=== PATIENT | male | born 1980 | race Hispanic/Latino ===

== ENCOUNTER 2018-07-13 16:58 | Emergency (ER) | payer OTHER ==
[2018-07-13 17:30] LABS: BASOPHILS % (AUTO) 0.6 % (0.0-5.0); EOSINOPHILS % (AUTO) 2.2 % (0.0-8.0); HEMATOCRIT 40.9 % (42-54); LYMPHOCYTES % (AUTO) 15.5 % (21.0-51.0); MEAN CORPUSCULAR HEMOGLOBIN 30.8 pg (27.0-33.0); MEAN CORPUSCULAR HGB CONC 33.6 g/dL (32.0-36.0); MEAN CORPUSCULAR VOLUME 91.8 fL (79-99); MONOCYTES % (AUTO) 9.3 % (3.0-13.0); NEUTROPHILS % (AUTO) 72.4 % (40.0-77.0); PLATELET COUNT (AUTO) 345 K/uL (130-400); RED BLOOD CELL COUNT(AUTO) 4.46 MIL/uL (4.50-6.20); WHITE BLOOD COUNT (AUTO) 9.1 K/uL (4.8-10.8)
[2018-07-13 17:38] LABS: APPEARANCE,URINE Clear (CLEAR); BILIRUBIN,URINE Negative (NEGATIVE); COLOR,URINE Yellow (YELLOW); GLUCOSE, URINE (UA) Negative (NEGATIVE); KETONES,URINE Negative (NEGATIVE); LEUKOCYTE ESTERASE ,URINE Negative (NEGATIVE); NITRATE,URINE Negative (NEGATIVE); OCCULT BLOOD,URINE Negative (NEGATIVE); PH,URINE 6.5 (5.0-8.0); PROTEIN,URINE Negative (NEGATIVE)
[2018-07-13 17:39] LABS: CREATININE 0.8 mg/dL (0.5-1.5); POTASSIUM 3.7 mmol/L (3.5-5.1)
[2018-07-13 17:43] LABS: ALBUMIN 3.5 g/dL (3.5-5.0); BILIRUBIN,TOTAL 0.3 mg/dL (0.2-1.0); TOTAL PROTEIN, SERUM 7.4 g/dL (6.0-8.3)
[2018-07-13 17:46] LABS: AMPHET/METH SCREEN,URINE NEGATIVE (NEGATIVE); BARBITURATE SCREEN, URINE NEGATIVE (NEGATIVE); BENZODIAZEPINES SCREEN,URINE NEGATIVE (NEGATIVE); CANNABINOID SCREEN,URINE NEGATIVE (NEGATIVE); COCAINE SCREEN,URINE POSITIVE (NEGATIVE); OPIATE SCREEN,URINE NEGATIVE (NEGATIVE); PHENCYCLIDINE SCREEN,URINE NEGATIVE (NEGATIVE)
[2018-07-13 17:48] LABS: CREATINE KINASE, TOTAL 325 U/L (21-232); MYOGLOBIN 45 ng/mL (10-92); TROPONIN I < 0.04 ng/mL (0.00-0.06)
== END 2018-07-13 18:16 | disposition home or self-care (01) ==
LOC: EDH 16:58
DX: R07.89 Other chest pain (principal); F14.10 Cocaine abuse, uncomplicated; R11.2 Nausea with vomiting, unspecified
CPT/HCPCS: 36415; 71045; 80053; 80305; 81003; 82550; 83690; 83874; 84484; 85025; 93005

== ENCOUNTER 2018-07-29 20:46 | Emergency (ER) | payer OTHER ==
[2018-07-29] MEDS ORDERED: IOHEXOL-350 75 ML VIAL IV ONE (21:53)
[2018-07-29 22:23] LABS: BASOPHILS % (AUTO) 1.4 % (0.0-5.0); EOSINOPHILS % (AUTO) 2.2 % (0.0-8.0); HEMATOCRIT 39.8 % (42-54); LYMPHOCYTES % (AUTO) 34.1 % (21.0-51.0); MEAN CORPUSCULAR HEMOGLOBIN 30.4 pg (27.0-33.0); MEAN CORPUSCULAR VOLUME 92.2 fL (79-99); MONOCYTES % (AUTO) 8.6 % (3.0-13.0); NEUTROPHILS % (AUTO) 53.7 % (40.0-77.0); NUCLEATED RED BLOOD CELLS 0.1 % (0.0-0.19); PLATELET COUNT (AUTO) 266 K/uL (130-400); RED BLOOD CELL COUNT(AUTO) 4.31 MIL/uL (4.50-6.20); RED CELL DISTRIBUTION WIDTH 14.7 % (11.0-15.5); WHITE BLOOD COUNT (AUTO) 9.1 K/uL (4.8-10.8)
[2018-07-29 22:29] LABS: POTASSIUM 3.8 mmol/L (3.5-5.1)
[2018-07-29 22:34] LABS: ALBUMIN 3.5 g/dL (3.5-5.0); BILIRUBIN,TOTAL 0.1 mg/dL (0.2-1.0); TOTAL PROTEIN, SERUM 6.7 g/dL (6.0-8.3)
[2018-07-29 22:38] LABS: PARTIAL THROMBOPLASTIN TIME 26.7 SEC (26.3-35.5); PROTHROMBIN TIME 10.5 SEC (9.6-11.6)
[2018-07-29 22:44] LABS: MYOGLOBIN 174 ng/mL (10-92); TROPONIN I < 0.04 ng/mL (0.00-0.06)
[2018-07-29 22:46] LABS: SALICYLATE < 2.8 mg/dL (2.8-20.0)
[2018-07-29 22:47] LABS: ACETAMINOPHEN < 1 mcg/mL (10-29)
[2018-07-29 22:48] LABS: ALCOHOL, BLOOD 200 mg/dL (0-10); CREATINE KINASE, TOTAL 614 U/L (21-232)
== END 2018-07-29 23:26 | disposition home or self-care (01) ==
LOC: EDH 20:46
DX: S30.1XXA Contusion of abdominal wall, initial encounter (principal); S09.8XXA Other specified injuries of head, initial encounter; F10.129 Alcohol abuse with intoxication, unspecified; R45.851 Suicidal ideations; V49.49XA Driver injured in collision with other motor vehicles in traffic accident, initial encounter; Y93.89 Activity, other specified; Y92.89 Other specified places as the place of occurrence of the external cause; Y99.8 Other external cause status
CPT/HCPCS: 36415; 70450; 71045; 71260; 72125; 74177; 80053; 82550; 83874; 84484; 85025; 85610; 85730; 93005; 94761; 99285; G0480 ×2; G0481; Q9967

== ENCOUNTER 2021-05-01 02:49 | Emergency (ER) | payer OTHER ==
[2021-05-01 02:51] VITALS: BP 163/99
[2021-05-01 03:09] VITALS: BP 177/116
[2021-05-01 04:58] VITALS: BP 156/93
[2021-05-01 05:15] VITALS: BP 136/82
[2021-05-01] MEDS ORDERED: KETOROLAC 30MG VIAL (30MG/ML) ONE (05:28)
[2021-05-01] MEDS ORDERED: KETOROLAC 30MG VIAL (30MG/ML) IV ONE (05:30)
[2021-05-01] MEDS: DIPH,PERTUSS(ACELL),TET VAC/PF 0.5 ML VIAL IM ONE ×2 (05:38→05:41)
[2021-05-01] MEDS: TETANUS/DIPHTHERIA TOXOID [ADULT] 0.5 ML VIAL IM ONE ×2 (05:39→05:41)
[2021-05-01 06:12] VITALS: BP 136/80
[2021-05-01 08:39] VITALS: BP 138/79
== END 2021-05-01 08:28 | disposition home or self-care (01) ==
LOC: EDH 03:32
DX: S00.81XA Abrasion of other part of head, initial encounter (principal); S00.511A Abrasion of lip, initial encounter; S80.01XA Contusion of right knee, initial encounter; Y04.8XXA Assault by other bodily force, initial encounter; Y93.89 Activity, other specified; Y92.89 Other specified places as the place of occurrence of the external cause; Y99.8 Other external cause status
CPT/HCPCS: 70450; 70486; 72125; 90471; 90714; 96374; 99285; J1885

== ENCOUNTER 2021-06-11 13:21 | Emergency (ER) | payer OTHER ==
[~2021-06-11] VITALS: Ht 157.5 cm; Wt 99.8 kg
[2021-06-11 13:27] VITALS: BP 126/73
[2021-06-11 14:19] LABS: BASOPHILS % (AUTO) 0.8 % (0.0-5.0); EOSINOPHILS % (AUTO) 0.6 % (0.0-8.0); HEMATOCRIT 41.4 % (42-54); LYMPHOCYTES % (AUTO) 14.7 % (21.0-51.0); MEAN CORPUSCULAR HEMOGLOBIN 31.4 pg (27.0-33.0); MEAN CORPUSCULAR HGB CONC 33.6 g/dL (32.0-36.0); MEAN CORPUSCULAR VOLUME 93.5 fL (79-99); MONOCYTES % (AUTO) 7.4 % (3.0-13.0); PLATELET COUNT (AUTO) 356 K/uL (130-400); RED BLOOD CELL COUNT(AUTO) 4.43 MIL/uL (4.50-6.20); RED CELL DISTRIBUTION WIDTH 13.4 % (11.0-15.5); WHITE BLOOD COUNT (AUTO) 12.8 K/uL (4.8-10.8)
[2021-06-11 14:31] LABS: CREATININE 1.4 mg/dL (0.5-1.5); POTASSIUM 3.5 mmol/L (3.5-5.1)
[2021-06-11 14:36] LABS: ALBUMIN 3.7 g/dL (3.5-5.0); BILIRUBIN,TOTAL 0.2 mg/dL (0.2-1.0); TOTAL PROTEIN, SERUM 7.3 g/dL (6.0-8.3)
[2021-06-11] MEDS: 0.9%NACL 1000ML 1,000 ML IV ONE (15:38)
[2021-06-11] MEDS: ACETAMINOPHEN 500 MG TABLET PO ONE (15:38)
[2021-06-11] MEDS ORDERED: ACET-2247 PO (15:56)
[2021-06-11 16:04] VITALS: BP 132/84
== END 2021-06-11 16:08 | disposition home or self-care (01) ==
LOC: EDH 13:21
DX: S02.2XXA Fracture of nasal bones, initial encounter for closed fracture (principal); S63.592A Other specified sprain of left wrist, initial encounter; S00.83XA Contusion of other part of head, initial encounter; S40.012A Contusion of left shoulder, initial encounter; S80.02XA Contusion of left knee, initial encounter; Y08.89XA Assault by other specified means, initial encounter; Y93.89 Activity, other specified; Y92.89 Other specified places as the place of occurrence of the external cause; Y99.8 Other external cause status
CPT/HCPCS: 36415; 70450; 70486; 72125; 73030; 73100; 73562; 80053; 85025; 96360; 99285; J7030

== ENCOUNTER 2022-11-21 19:05 | Inpatient (IN) | payer OTHER ==
[~2022-11-21] VITALS: Ht 170.2 cm; Wt 70.9 kg
[~2022-11-21 19:05] MED LIST: ACET-2247 PO
[2022-11-21] MEDS ORDERED: VANCOMYCIN 1G/250ML KIT 250 ML IV ONE (19:27)
[2022-11-21] MEDS ORDERED: VANCOMYCIN 1G VIAL IVPB ONE (19:30)
[2022-11-21] MEDS ORDERED: ZOSYN 3.375GM +NS 50ML IVPB ONE (19:30)
[2022-11-21 20:13] LABS: BASOPHILS % (AUTO) 0.8 % (0.0-5.0); EOSINOPHILS % (AUTO) 0.5 % (0.0-8.0); HEMATOCRIT 32.4 % (42-54); LYMPHOCYTES % (AUTO) 11.8 % (21.0-51.0); MEAN CORPUSCULAR HEMOGLOBIN 30.1 pg (27.0-33.0); MEAN CORPUSCULAR HGB CONC 34.9 g/dL (32.0-36.0); MEAN CORPUSCULAR VOLUME 86.4 fL (79-99); MONOCYTES % (AUTO) 16.9 % (3.0-13.0); NEUTROPHILS % (AUTO) 66.1 % (40.0-77.0); PLATELET COUNT (AUTO) 202 K/uL (130-400); RED BLOOD CELL COUNT(AUTO) 3.75 MIL/uL (4.50-6.20); RED CELL DISTRIBUTION WIDTH 15.9 % (11.0-15.5); WHITE BLOOD COUNT (AUTO) 13.1 K/uL (4.8-10.8)
[2022-11-21 20:23] LABS: INR 1.19 (0.85-1.15); PROTHROMBIN TIME 12.8 SEC (9.6-11.6)
[2022-11-21 20:25] LABS: POTASSIUM 3.3 mmol/L (3.5-5.1)
[2022-11-21 20:32] LABS: ALBUMIN 1.4 g/dL (3.5-5.0); TOTAL PROTEIN, SERUM 6.4 g/dL (6.0-8.3)
[2022-11-21 20:45] LABS: APPEARANCE,URINE CLEAR (CLEAR); BILIRUBIN,URINE NEGATIVE (NEGATIVE); COLOR,URINE YELLOW (YELLOW); GLUCOSE, URINE (UA) NEGATIVE (NEGATIVE); KETONES,URINE NEGATIVE (NEGATIVE); LEUKOCYTE ESTERASE ,URINE 75 Leu/uL (NEGATIVE); NITRATE,URINE NEGATIVE (NEGATIVE); OCCULT BLOOD,URINE LARGE (NEGATIVE); PH,URINE 5.5 (5.0-8.0); PROTEIN,URINE 50 mg/dL (NEGATIVE)
[2022-11-21 20:48] LABS: BACTERIA,URINE RARE /HPF (None Seen); MUCUS,URINE RARE LPF (None Seen); OTHER CASTS, URINE 3 /LPF (None Seen); YEAST,URINE BUDDING RARE /HPF (None Seen)
[2022-11-21] MEDS ORDERED: IOHEXOL-350 50ML VIAL IV ONE (21:14)
[2022-11-21] MEDS ORDERED: HEPARIN 25,000 UNITS/250ML D5W 250 ML IV STA (22:08)
[2022-11-21] MEDS ORDERED: DEXAMETHASONE SOD PHOSPHATE 4 MG/ML 1ML VIAL ONE (22:21)
[2022-11-21] MEDS ORDERED: KETOROLAC 30MG VIAL (30MG/ML) ONE (22:21)
[2022-11-21] MEDS ORDERED: ACETAMINOPHEN 650 MG/20.3 ML UDCUP PEG ONE (22:30)
[2022-11-21] MEDS ORDERED: DEXAMETHASONE 4 MG TAB PO SCH (22:30)
[2022-11-21] MEDS ORDERED: KETOROLAC 30MG VIAL (30MG/ML) IVP ONE (22:30)
[2022-11-21] MEDS ORDERED: HEPARIN 5,000 UNIT VIAL ONE (22:35)
[2022-11-21] MEDS: CLINDAMYCIN IVPB 900MG/50ML 50 ML IV SCH (22:47)
[2022-11-22] VITALS (26 sets, daily range): BP systolic 103–170; BP diastolic 67–109
[2022-11-22] MEDS ORDERED: KCL 20 MEQ ERTAB PO ONE (01:30)
[2022-11-22] MEDS: CLINDAMYCIN IVPB 900MG/50ML 50 ML IV SCH ×2 (01:35→13:43)
[2022-11-22] MEDS ORDERED: MORPHINE 2 MG SYG IV PRN (02:00)
[2022-11-22] MEDS ORDERED: KCL 20 MEQ ERTAB PO PRN (02:00)
[2022-11-22] MEDS ORDERED: MAG/ALUM/SIMETH 30 ML UDCUP PO PRN (02:00)
[2022-11-22] MEDS ORDERED: VANCOMYCIN 1G/250ML KIT 250 ML IV SCH (02:00)
[2022-11-22] MEDS ORDERED: LACTULOSE 20 GM/30 ML UDCUP PO PRN (02:00)
[2022-11-22] MEDS ORDERED: ONDANSETRON 4MG INJ IV PRN (02:00)
[2022-11-22] MEDS ORDERED: VANCOMYCIN PROTOCOL PER PHARMACY IV PRN ×2 (02:00)
[2022-11-22] MEDS ORDERED: DIPHENHYDRAMINE HCL 25 MG CAPSULE PO PRN (02:00)
[2022-11-22] MEDS ORDERED: LIDOCAINE HCL-MPF 1% 2ML VIAL IV PRN (02:00)
[2022-11-22] MEDS ORDERED: POTASSIUM CHLORIDE 20MEQ/100ML 100 ML IV PRN (02:00)
[2022-11-22] MEDS ORDERED: NITROGLYCERIN 0.4 MG SL TAB SL PRN (02:00)
[2022-11-22] MEDS ORDERED: POTASSIUM CHLORIDE 10% ELIXIR 20 MEQ/15 ML UDCUP PO PRN (02:00)
[2022-11-22] MEDS: 0.9%NACL 1000ML 1,000 ML IV SCH ×3 (02:09→22:00)
[2022-11-22] MEDS: ZOSYN 3.375GM+NS 50ML 50 ML IVPB SCH ×3 (04:39→20:10)
[2022-11-22] MEDS ORDERED: CHLORDIAZEPOXIDE HCL 25 MG CAP PO PRN (08:30)
[2022-11-22] MEDS ORDERED: PHARMACY COMMUNICATION MISC PRN (08:30)
[2022-11-22] MEDS ORDERED: LORAZEPAM 2 MG/ML 1 ML VIAL IVP PRN ×2 (08:30)
[2022-11-22] MEDS ORDERED: 0.9% NACL 250ML 250 ML ONE (08:50)
[2022-11-22] MEDS: CHLORDIAZEPOXIDE HCL 25 MG CAP PO PRN (09:28)
[2022-11-22] MEDS: VANCOMYCIN 1G/250ML KIT 250 ML IV SCH ×2 (09:28→20:10)
[2022-11-22] MEDS: FAMOTIDINE 20MG VIAL IV SCH ×2 (09:28→20:10)
[2022-11-22 10:43] LABS: BASOPHILS % (AUTO) 0.3 % (0.0-5.0); HEMATOCRIT 32.2 % (42-54); LYMPHOCYTES % (AUTO) 9.1 % (21.0-51.0); MEAN CORPUSCULAR HEMOGLOBIN 30.4 pg (27.0-33.0); MEAN CORPUSCULAR HGB CONC 34.5 g/dL (32.0-36.0); MEAN CORPUSCULAR VOLUME 88.2 fL (79-99); MONOCYTES % (AUTO) 7.8 % (3.0-13.0); NEUTROPHILS % (AUTO) 78.9 % (40.0-77.0); PLATELET COUNT (AUTO) 211 K/uL (130-400); RED BLOOD CELL COUNT(AUTO) 3.65 MIL/uL (4.50-6.20); RED CELL DISTRIBUTION WIDTH 15.7 % (11.0-15.5); WHITE BLOOD COUNT (AUTO) 12.3 K/uL (4.8-10.8)
[2022-11-22 10:51] LABS: CREATININE 0.9 mg/dL (0.5-1.5); POTASSIUM 3.8 mmol/L (3.5-5.1)
[2022-11-22 10:53] LABS: INR 1.18 (0.85-1.15); PROTHROMBIN TIME 12.7 SEC (9.6-11.6)
[2022-11-22 11:01] LABS: ALBUMIN 1.3 g/dL (3.5-5.0); CRP QUANTITATIVE 119.1 mg/L (0.00-9.0); TOTAL PROTEIN, SERUM 6.2 g/dL (6.0-8.3)
[2022-11-22 12:06] LABS: ERYTHROCYTE SEDIMENTATION RATE 105 MM/HR (0-15)
[2022-11-22] MEDS ORDERED: LIDOCAINE 2%-EPI 1:200,000 20 ML VIAL IJ ONE ×2 (13:29→15:53)
[2022-11-22] MEDS ORDERED: MIDAZOLAM HCL 1 MG/ML 2ML VIAL ONE (15:25)
[2022-11-22] MEDS ORDERED: SUCCINYLCHOLINE CHLORIDE 20 MG/ML 10 ML VIAL ONE (15:25)
[2022-11-22] MEDS ORDERED: FENTANYL CITRATE PF 50 MCG/1 ML 2ML VIAL ONE ×2 (15:25→16:18)
[2022-11-22] MEDS ORDERED: PROPOFOL 10 MG/ML 20ML VIAL IV ONE (15:26)
[2022-11-22] MEDS ORDERED: ROCURONIUM 10MG/1ML SYR 10 MG/ML ML ONE (15:41)
[2022-11-22] MEDS ORDERED: DEXAMETHASONE SOD PHOSPHATE 10MG/ML 1ML VIAL ONE (16:22)
[2022-11-22] MEDS ORDERED: ONDANSETRON 4MG INJ ONE (16:49)
[2022-11-22] MEDS ORDERED: LABETALOL 20MG SYG IV ONE (16:53)
[2022-11-22] MEDS ORDERED: HYDROMORPHONE 1 MG INJ ONE (16:54)
[2022-11-22] MEDS ORDERED: MEPERIDINE-PF 25 MG/ML SYG ONE (17:17)
[2022-11-22] MEDS: MORPHINE 4 MG SYG IV PRN (18:34)
[2022-11-22 18:55] LABS: BASOPHILS % (AUTO) 0.3 % (0.0-5.0); EOSINOPHILS % (AUTO) 0.1 % (0.0-8.0); HEMATOCRIT 26.9 % (42-54); LYMPHOCYTES % (AUTO) 5.8 % (21.0-51.0); MEAN CORPUSCULAR HGB CONC 34.2 g/dL (32.0-36.0); MEAN CORPUSCULAR VOLUME 90.6 fL (79-99); MONOCYTES % (AUTO) 5.7 % (3.0-13.0); NEUTROPHILS % (AUTO) 85.8 % (40.0-77.0); PLATELET COUNT (AUTO) 250 K/uL (130-400); RED BLOOD CELL COUNT(AUTO) 2.97 MIL/uL (4.50-6.20); RED CELL DISTRIBUTION WIDTH 16.2 % (11.0-15.5); WHITE BLOOD COUNT (AUTO) 24.1 K/uL (4.8-10.8)
[2022-11-23] VITALS: BP 116/71
[2022-11-23] MEDS: CLINDAMYCIN IVPB 900MG/50ML 50 ML IV SCH ×3 (00:46→13:50)
[2022-11-23] MEDS: MORPHINE 4 MG SYG IV PRN (00:50)
[2022-11-23 04:00] VITALS: BP 134/87
[2022-11-23 05:00] LABS: BASOPHILS % (AUTO) 0.2 % (0.0-5.0); HEMATOCRIT 22.6 % (42-54); LYMPHOCYTES % (AUTO) 7.1 % (21.0-51.0); MEAN CORPUSCULAR HEMOGLOBIN 30.2 pg (27.0-33.0); MEAN CORPUSCULAR HGB CONC 34.1 g/dL (32.0-36.0); MEAN CORPUSCULAR VOLUME 88.6 fL (79-99); MONOCYTES % (AUTO) 11.3 % (3.0-13.0); NEUTROPHILS % (AUTO) 79.4 % (40.0-77.0); PLATELET COUNT (AUTO) 211 K/uL (130-400); RED BLOOD CELL COUNT(AUTO) 2.55 MIL/uL (4.50-6.20); RED CELL DISTRIBUTION WIDTH 15.9 % (11.0-15.5); WHITE BLOOD COUNT (AUTO) 17.6 K/uL (4.8-10.8)
[2022-11-23 05:23] LABS: ALBUMIN 1.3 g/dL (3.5-5.0); POTASSIUM 4.1 mmol/L (3.5-5.1); TOTAL PROTEIN, SERUM 5.4 g/dL (6.0-8.3)
[2022-11-23] MEDS: ZOSYN 3.375GM+NS 50ML 50 ML IVPB SCH ×3 (06:10→20:44)
[2022-11-23 08:00] VITALS: BP_SYST 140; BP_SYST 152; BP_DIAS 109; BP_DIAS 90
[2022-11-23] MEDS: VANCOMYCIN 1G/250ML KIT 250 ML IV SCH ×2 (10:20→20:44)
[2022-11-23] MEDS: FAMOTIDINE 20MG VIAL IV SCH ×2 (10:21→20:44)
[2022-11-23] MEDS: 0.9%NACL 1000ML 1,000 ML IV SCH ×2 (10:22→18:06)
[2022-11-23] MEDS: ACETAMINOPHEN WITH CODEINE 1 TAB TAB PO PRN ×2 (10:31→20:56)
[2022-11-23 11:30] VITALS: BP 115/68
[2022-11-23 15:53] VITALS: BP 122/83
[2022-11-23 19:00] VITALS: BP 123/79
[2022-11-24] VITALS: BP 143/89
[2022-11-24] MEDS: CLINDAMYCIN IVPB 900MG/50ML 50 ML IV SCH ×2 (00:22→06:56)
[2022-11-24 04:00] VITALS: BP 140/89
[2022-11-24] MEDS: MORPHINE 4 MG SYG IV PRN ×4 (05:23→23:07)
[2022-11-24] MEDS: 0.9%NACL 1000ML 1,000 ML IV SCH ×2 (05:23→18:09)
[2022-11-24] MEDS: ZOSYN 3.375GM+NS 50ML 50 ML IVPB SCH (05:23)
[2022-11-24 05:43] LABS: HEMATOCRIT 21.5 % (42-54); MEAN CORPUSCULAR HEMOGLOBIN 30.8 pg (27.0-33.0); MEAN CORPUSCULAR HGB CONC 33.5 g/dL (32.0-36.0); MEAN CORPUSCULAR VOLUME 91.9 fL (79-99); RED BLOOD CELL COUNT(AUTO) 2.34 MIL/uL (4.50-6.20); RED CELL DISTRIBUTION WIDTH 16.3 % (11.0-15.5); WHITE BLOOD COUNT (AUTO) 7.1 K/uL (4.8-10.8)
[2022-11-24 06:14] LABS: ALBUMIN 1.3 g/dL (3.5-5.0); CREATININE 1.1 mg/dL (0.5-1.5); TOTAL PROTEIN, SERUM 5.3 g/dL (6.0-8.3)
[2022-11-24 08:00] VITALS: BP 167/101
[2022-11-24] MEDS ORDERED: 0.9% NACL 250ML 250 ML ONE (09:11)
[2022-11-24] MEDS: FAMOTIDINE 20MG VIAL IV SCH ×2 (09:22→19:53)
[2022-11-24] MEDS: VANCOMYCIN 1G/250ML KIT 250 ML IV SCH (09:22)
[2022-11-24 12:00] VITALS: BP 162/104
[2022-11-24] MEDS: CEFTRIAXONE 2GM VIAL IVPB SCH (14:10)
[2022-11-24] MEDS: METOPROLOL TARTRATE 1 MG/ML 5ML VIAL IV PRN (15:50)
[2022-11-24 16:00] VITALS: BP 158/104
[2022-11-24 19:00] VITALS: BP 141/95
[2022-11-25] VITALS: BP 176/102
[2022-11-25] MEDS: 0.9%NACL 1000ML 1,000 ML IV SCH
[2022-11-25 04:00] VITALS: BP 175/104
[2022-11-25] MEDS: METOPROLOL TARTRATE 1 MG/ML 5ML VIAL IV PRN ×3 (04:15→23:48)
[2022-11-25 04:39] LABS: BASOPHILS % (AUTO) 1.4 % (0.0-5.0); EOSINOPHILS % (AUTO) 2.1 % (0.0-8.0); LYMPHOCYTES % (AUTO) 24.6 % (21.0-51.0); MEAN CORPUSCULAR HEMOGLOBIN 31.2 pg (27.0-33.0); MEAN CORPUSCULAR HGB CONC 34.3 g/dL (32.0-36.0); MEAN CORPUSCULAR VOLUME 90.8 fL (79-99); MONOCYTES % (AUTO) 13.8 % (3.0-13.0); NEUTROPHILS % (AUTO) 53.8 % (40.0-77.0); PLATELET COUNT (AUTO) 295 K/uL (130-400); RED BLOOD CELL COUNT(AUTO) 2.18 MIL/uL (4.50-6.20); RED CELL DISTRIBUTION WIDTH 16.2 % (11.0-15.5); WHITE BLOOD COUNT (AUTO) 8.3 K/uL (4.8-10.8)
[2022-11-25 04:43] LABS: ALBUMIN 1.3 g/dL (3.5-5.0); CREATININE 0.9 mg/dL (0.5-1.5); POTASSIUM 3.9 mmol/L (3.5-5.1); TOTAL PROTEIN, SERUM 5.3 g/dL (6.0-8.3)
[2022-11-25 04:46] LABS: HEMATOCRIT 19.8 % (42-54)
[2022-11-25 07:30] VITALS: BP 188/105
[2022-11-25] MEDS: FAMOTIDINE 20MG VIAL IV SCH ×2 (09:00→21:23)
[2022-11-25 11:00] VITALS: BP 187/97
[2022-11-25] MEDS: MORPHINE 4 MG SYG IV PRN (11:09)
[2022-11-25 15:19] LABS: HEMATOCRIT 26.2 % (42-54)
[2022-11-25] MEDS: CEFTRIAXONE 2GM VIAL IVPB SCH (15:47)
[2022-11-25 16:00] VITALS: BP 206/107
[2022-11-25] MEDS: ACETAMINOPHEN WITH CODEINE 1 TAB TAB PO PRN ×2 (18:19→23:47)
[2022-11-25 19:00] VITALS: BP 127/88
[2022-11-26] VITALS (29 sets, daily range): BP systolic 127–196; BP diastolic 88–125
[2022-11-26 04:56] LABS: HEMATOCRIT 27.4 % (42-54); MEAN CORPUSCULAR HEMOGLOBIN 29.8 pg (27.0-33.0); MEAN CORPUSCULAR HGB CONC 33.6 g/dL (32.0-36.0); MEAN CORPUSCULAR VOLUME 88.7 fL (79-99); RED BLOOD CELL COUNT(AUTO) 3.09 MIL/uL (4.50-6.20); RED CELL DISTRIBUTION WIDTH 16.5 % (11.0-15.5); WHITE BLOOD COUNT (AUTO) 8.7 K/uL (4.8-10.8)
[2022-11-26 05:06] LABS: ALBUMIN 1.5 g/dL (3.5-5.0); CREATININE 0.9 mg/dL (0.5-1.5); POTASSIUM 4.3 mmol/L (3.5-5.1); TOTAL PROTEIN, SERUM 5.6 g/dL (6.0-8.3)
[2022-11-26] MEDS: METOPROLOL TARTRATE 1 MG/ML 5ML VIAL IV PRN (05:19)
[2022-11-26] MEDS ORDERED: MIDAZOLAM HCL 1 MG/ML 5ML VIAL ONE (06:26)
[2022-11-26] MEDS ORDERED: CEFAZOLIN SODIUM 1 GM VIAL ONE (06:45)
[2022-11-26] MEDS ORDERED: LIDOCAINE 1%-EPI 1:100,000 20 ML VIAL IJ SCH (07:30)
[2022-11-26] MEDS ORDERED: LIDOCAINE HCL-MPF 1% 5ML AMP IJ ONE (08:23)
[2022-11-26] MEDS ORDERED: FENTANYL CITRATE PF 50 MCG/1 ML 2ML VIAL ONE ×2 (08:23→08:57)
[2022-11-26] MEDS ORDERED: PROPOFOL 10 MG/ML 20ML VIAL IV ONE (08:23)
[2022-11-26] MEDS ORDERED: ROCURONIUM 10MG/1ML SYR 10 MG/ML ML ONE (08:23)
[2022-11-26] MEDS ORDERED: ONDANSETRON 4MG INJ ONE (08:42)
[2022-11-26] MEDS ORDERED: KETOROLAC 30MG VIAL (30MG/ML) ONE (08:58)
[2022-11-26] MEDS ORDERED: DEXAMETHASONE SOD PHOSPHATE 10MG/ML 1ML VIAL ONE (09:00)
[2022-11-26] MEDS ORDERED: GLYCOPYRROLATE 1 MG/5 ML SYRINGE ONE (09:12)
[2022-11-26] MEDS ORDERED: NEOSTIGMINE 5MG/5ML SYR IV ONE (09:12)
[2022-11-26] MEDS: ACETAMINOPHEN WITH CODEINE 1 TAB TAB PO PRN (10:58)
[2022-11-26] MEDS: LISINOPRIL 5 MG TABLET PO SCH (10:58)
[2022-11-26] MEDS: FAMOTIDINE 20MG VIAL IV SCH ×2 (10:59→20:19)
[2022-11-26] MEDS ORDERED: LISINOPRIL 5 MG TABLET PO SCH (11:00)
[2022-11-26] MEDS ORDERED: METOPROLOL TARTRATE 1 MG/ML 5ML VIAL IV PRN (11:00)
[2022-11-26] MEDS: THIAMINE HCL 100 MG, FOLIC ACID 1 MG in 0.9%NACL 1000ML 1,000 ML IV SCH ×2 (11:00→14:41)
[2022-11-26] MEDS: CEFTRIAXONE 2GM VIAL IVPB SCH (14:39)
[2022-11-26] MEDS: MORPHINE 4 MG SYG IV PRN (20:22)
[2022-11-27] VITALS (7 sets, daily range): BP systolic 149–195; BP diastolic 86–113
[2022-11-27] MEDS: CHLORDIAZEPOXIDE HCL 25 MG CAP PO PRN (00:25)
[2022-11-27 04:32] LABS: BASOPHILS % (AUTO) 0.4 % (0.0-5.0); EOSINOPHILS % (AUTO) 0.6 % (0.0-8.0); HEMATOCRIT 24.1 % (42-54); LYMPHOCYTES % (AUTO) 18.5 % (21.0-51.0); MEAN CORPUSCULAR HEMOGLOBIN 30.1 pg (27.0-33.0); MEAN CORPUSCULAR HGB CONC 33.2 g/dL (32.0-36.0); MEAN CORPUSCULAR VOLUME 90.6 fL (79-99); MONOCYTES % (AUTO) 10.7 % (3.0-13.0); NEUTROPHILS % (AUTO) 68.5 % (40.0-77.0); PLATELET COUNT (AUTO) 417 K/uL (130-400); RED BLOOD CELL COUNT(AUTO) 2.66 MIL/uL (4.50-6.20); RED CELL DISTRIBUTION WIDTH 16.2 % (11.0-15.5); WHITE BLOOD COUNT (AUTO) 11.4 K/uL (4.8-10.8)
[2022-11-27 04:52] LABS: ALBUMIN 1.7 g/dL (3.5-5.0); CREATININE 0.8 mg/dL (0.5-1.5); CRP QUANTITATIVE 9.7 mg/L (0.00-9.0); MAGNESIUM 1.3 mg/dL (1.80-2.40); POTASSIUM 3.9 mmol/L (3.5-5.1); TOTAL PROTEIN, SERUM 5.8 g/dL (6.0-8.3)
[2022-11-27] MEDS ORDERED: MAGNESIUM 2GM PREMIX 50ML 50 ML IV ONE (06:00)
[2022-11-27] MEDS: GUAIFENESIN-DM 200/20 MG 10 ML PO PRN ×2 (06:04→20:40)
[2022-11-27] MEDS: LISINOPRIL 5 MG TABLET PO SCH (08:50)
[2022-11-27] MEDS: ACETAMINOPHEN WITH CODEINE 1 TAB TAB PO PRN ×3 (08:50→20:41)
[2022-11-27] MEDS: FAMOTIDINE 20MG VIAL IV SCH ×2 (08:50→20:40)
[2022-11-27] MEDS ORDERED: MAGNESIUM 2GM PREMIX 50ML 50 ML IV SCH (09:30)
[2022-11-27] MEDS: CEFTRIAXONE 2GM VIAL IVPB SCH (14:15)
[2022-11-27] MEDS ORDERED: AMLODIPINE 5 MG TAB PO SCH (14:30)
[2022-11-27] MEDS: KETOROLAC 15MG/ML VIAL (15MG/ML) IV PRN (15:45)
[2022-11-27 18:10] LABS: HEPATITIS A IGM ANTIBODY Non-Reactive (Nonreactive); HEPATITIS B CORE IGM ANTIBODY Non-Reactive (Negative); HEPATITIS B SURFACE ANTIGEN Non-Reactive (Nonreactive); HEPATITIS C ANTIBODY Non-Reactive (Nonreactive)
[2022-11-27] MEDS: THIAMINE HCL 100 MG, FOLIC ACID 1 MG in 0.9%NACL 1000ML 1,000 ML IV SCH (22:31)
[2022-11-28] VITALS (7 sets, daily range): BP systolic 144–176; BP diastolic 87–113
[2022-11-28 05:00] LABS: BASOPHILS % (AUTO) 2.5 % (0.0-5.0); EOSINOPHILS % (AUTO) 2.9 % (0.0-8.0); HEMATOCRIT 25.1 % (42-54); LYMPHOCYTES % (AUTO) 29.6 % (21.0-51.0); MEAN CORPUSCULAR HEMOGLOBIN 30.2 pg (27.0-33.0); MEAN CORPUSCULAR HGB CONC 32.3 g/dL (32.0-36.0); MEAN CORPUSCULAR VOLUME 93.7 fL (79-99); MONOCYTES % (AUTO) 12.5 % (3.0-13.0); NEUTROPHILS % (AUTO) 50.9 % (40.0-77.0); PLATELET COUNT (AUTO) 528 K/uL (130-400); RED BLOOD CELL COUNT(AUTO) 2.68 MIL/uL (4.50-6.20); RED CELL DISTRIBUTION WIDTH 17.2 % (11.0-15.5)
[2022-11-28 05:14] LABS: ALBUMIN 1.8 g/dL (3.5-5.0); CREATININE 0.8 mg/dL (0.5-1.5); POTASSIUM 4.6 mmol/L (3.5-5.1); TOTAL PROTEIN, SERUM 5.8 g/dL (6.0-8.3)
[2022-11-28] MEDS: KETOROLAC 15MG/ML VIAL (15MG/ML) IV PRN ×2 (06:01→17:40)
[2022-11-28] MEDS: LISINOPRIL 5 MG TABLET PO SCH (07:57)
[2022-11-28] MEDS: FAMOTIDINE 20MG VIAL IV SCH (07:57)
[2022-11-28] MEDS: ACETAMINOPHEN WITH CODEINE 1 TAB TAB PO PRN ×2 (08:00→14:15)
[2022-11-28] MEDS: PANTOPRAZOLE 40 MG/VIAL IVP SCH (09:00)
[2022-11-28] MEDS ORDERED: AMLODIPINE 5 MG TAB PO SCH (09:00)
[2022-11-28] MEDS: THIAMINE HCL 100 MG, FOLIC ACID 1 MG in 0.9%NACL 1000ML 1,000 ML IV SCH (10:06)
[2022-11-28] MEDS ORDERED: HYDRALAZINE 20MG/ML VIAL IV PRN (11:00)
[2022-11-28] MEDS: CEFTRIAXONE 2GM VIAL IVPB SCH (13:19)
[2022-11-28] MEDS: AMLODIPINE 5 MG TAB PO SCH (20:17)
[2022-11-29] MEDS: ACETAMINOPHEN WITH CODEINE 1 TAB TAB PO PRN ×3 (00:06→18:22)
[2022-11-29] MEDS: GUAIFENESIN-DM 200/20 MG 10 ML PO PRN (03:16)
[2022-11-29 04:29] VITALS: BP 151/102
[2022-11-29 05:47] LABS: BASOPHILS % (AUTO) 1.9 % (0.0-5.0); EOSINOPHILS % (AUTO) 2.6 % (0.0-8.0); LYMPHOCYTES % (AUTO) 22.2 % (21.0-51.0); MEAN CORPUSCULAR HEMOGLOBIN 30.2 pg (27.0-33.0); MEAN CORPUSCULAR HGB CONC 33.2 g/dL (32.0-36.0); MEAN CORPUSCULAR VOLUME 90.9 fL (79-99); MONOCYTES % (AUTO) 11.8 % (3.0-13.0); NEUTROPHILS % (AUTO) 59.9 % (40.0-77.0); PLATELET COUNT (AUTO) 618 K/uL (130-400); RED BLOOD CELL COUNT(AUTO) 2.75 MIL/uL (4.50-6.20); RED CELL DISTRIBUTION WIDTH 17.1 % (11.0-15.5)
[2022-11-29 06:35] LABS: ALBUMIN 1.9 g/dL (3.5-5.0); CREATININE 0.9 mg/dL (0.5-1.5); POTASSIUM 3.9 mmol/L (3.5-5.1); TOTAL PROTEIN, SERUM 5.8 g/dL (6.0-8.3)
[2022-11-29 08:12] VITALS: BP 135/97
[2022-11-29] MEDS: PANTOPRAZOLE 40 MG/VIAL IVP SCH (08:21)
[2022-11-29] MEDS: AMLODIPINE 5 MG TAB PO SCH ×2 (08:22→21:04)
[2022-11-29] MEDS: LISINOPRIL 5 MG TABLET PO SCH (08:22)
[2022-11-29 11:58] VITALS: BP 144/95
[2022-11-29] MEDS: CEFTRIAXONE 2GM VIAL IVPB SCH (12:56)
[2022-11-29] MEDS: KETOROLAC 15MG/ML VIAL (15MG/ML) IV PRN ×2 (12:57→21:05)
[2022-11-29 16:00] VITALS: BP 172/106
[2022-11-29 20:00] VITALS: BP 131/73
[2022-11-30] VITALS: BP 152/94
[2022-11-30] MEDS: ACETAMINOPHEN WITH CODEINE 1 TAB TAB PO PRN ×4 (00:44→23:57)
[2022-11-30 04:00] VITALS: BP 143/88
[2022-11-30 08:28] VITALS: BP 141/83
[2022-11-30] MEDS: PANTOPRAZOLE 40 MG/VIAL IVP SCH (08:52)
[2022-11-30] MEDS: AMLODIPINE 5 MG TAB PO SCH ×2 (08:53→20:50)
[2022-11-30] MEDS: LISINOPRIL 5 MG TABLET PO SCH (08:54)
[2022-11-30 11:45] VITALS: BP 149/99
[2022-11-30] MEDS: CEFTRIAXONE 2GM VIAL IVPB SCH (13:09)
[2022-11-30] MEDS: 0.9%NACL 1000ML 1,000 ML IV SCH (13:17)
[2022-11-30 13:23] LABS: HEMATOCRIT 25.3 % (42-54); MEAN CORPUSCULAR HEMOGLOBIN 30.3 pg (27.0-33.0); MEAN CORPUSCULAR HGB CONC 33.2 g/dL (32.0-36.0); MEAN CORPUSCULAR VOLUME 91.3 fL (79-99); RED BLOOD CELL COUNT(AUTO) 2.77 MIL/uL (4.50-6.20); RED CELL DISTRIBUTION WIDTH 17.6 % (11.0-15.5); WHITE BLOOD COUNT (AUTO) 8.2 K/uL (4.8-10.8)
[2022-11-30 13:37] LABS: CREATININE 0.9 mg/dL (0.5-1.5); POTASSIUM 3.8 mmol/L (3.5-5.1)
[2022-11-30 13:41] LABS: ALBUMIN 2.1 g/dL (3.5-5.0); TOTAL PROTEIN, SERUM 6.2 g/dL (6.0-8.3)
[2022-11-30 16:52] VITALS: BP 144/85
[2022-11-30 20:00] VITALS: BP 144/93
[2022-11-30] MEDS: CARVEDILOL 3.125 MG TABLET PO SCH (20:52)
[2022-12-01] VITALS: BP 126/78
[2022-12-01] MEDS: 0.9%NACL 1000ML 1,000 ML IV SCH ×2 (03:40→16:34)
[2022-12-01 04:00] VITALS: BP 146/95
[2022-12-01 06:09] LABS: HEMATOCRIT 25.6 % (42-54); MEAN CORPUSCULAR HEMOGLOBIN 31.1 pg (27.0-33.0); MEAN CORPUSCULAR HGB CONC 32.8 g/dL (32.0-36.0); MEAN CORPUSCULAR VOLUME 94.8 fL (79-99); PLATELET COUNT (AUTO) 619 K/uL (130-400); RED CELL DISTRIBUTION WIDTH 17.4 % (11.0-15.5); WHITE BLOOD COUNT (AUTO) 8.2 K/uL (4.8-10.8)
[2022-12-01 06:34] LABS: CREATININE 0.8 mg/dL (0.5-1.5); POTASSIUM 3.7 mmol/L (3.5-5.1)
[2022-12-01 07:28] LABS: BAND NEUTROPHILS % (MANUAL) 2 % (0-2); BASOPHILS % (MANUAL) 2 % (0-2); EOSINOPHILS % (MANUAL) 1 % (1-6); LYMPHOCYTES % (MANUAL) 23 % (22-44); MAN.DIFF COMMENT-IMPRESSION MANUAL DIFFERENTIAL; MONOCYTES % (MANUAL) 7 % (2-9); SEGMENTED NEUTROPHILS % 65 % (40-70)
[2022-12-01 07:29] LABS: PLATELET MORPHOLOGY COMMENT MARKED INCREASE
[2022-12-01 08:00] VITALS: BP 146/102
[2022-12-01] MEDS: PANTOPRAZOLE 40 MG/VIAL IVP SCH (08:38)
[2022-12-01] MEDS: ACETAMINOPHEN WITH CODEINE 1 TAB TAB PO PRN ×3 (08:39→22:19)
[2022-12-01] MEDS: LISINOPRIL 5 MG TABLET PO SCH (08:39)
[2022-12-01] MEDS: AMLODIPINE 5 MG TAB PO SCH ×2 (08:39→19:34)
[2022-12-01] MEDS: CARVEDILOL 3.125 MG TABLET PO SCH ×2 (08:40→19:34)
[2022-12-01 12:00] VITALS: BP 138/96
[2022-12-01] MEDS: CEFTRIAXONE 2GM VIAL IVPB SCH (14:08)
[2022-12-01 16:00] VITALS: BP 140/93
[2022-12-01 21:55] VITALS: BP 155/91
[2022-12-02 00:14] VITALS: BP 119/68
[2022-12-02] MEDS: GUAIFENESIN-DM 200/20 MG 10 ML PO PRN (02:24)
[2022-12-02] MEDS: 0.9%NACL 1000ML 1,000 ML IV SCH (04:03)
[2022-12-02 04:14] VITALS: BP 142/86
[2022-12-02 04:32] LABS: HEMATOCRIT 28.3 % (42-54); MEAN CORPUSCULAR HEMOGLOBIN 30.3 pg (27.0-33.0); MEAN CORPUSCULAR HGB CONC 32.2 g/dL (32.0-36.0); MEAN CORPUSCULAR VOLUME 94.3 fL (79-99); RED CELL DISTRIBUTION WIDTH 17.5 % (11.0-15.5)
[2022-12-02 04:58] LABS: ALBUMIN 2.3 g/dL (3.5-5.0); CREATININE 0.9 mg/dL (0.5-1.5); POTASSIUM 3.7 mmol/L (3.5-5.1); TOTAL PROTEIN, SERUM 6.8 g/dL (6.0-8.3)
[2022-12-02] MEDS: ACETAMINOPHEN WITH CODEINE 1 TAB TAB PO PRN ×3 (06:08→19:46)
[2022-12-02 07:30] VITALS: BP 152/84
[2022-12-02] MEDS: PANTOPRAZOLE 40 MG/VIAL IVP SCH (08:54)
[2022-12-02] MEDS: AMLODIPINE 5 MG TAB PO SCH ×2 (08:55→19:45)
[2022-12-02] MEDS: CARVEDILOL 3.125 MG TABLET PO SCH ×2 (08:55→19:46)
[2022-12-02] MEDS: LISINOPRIL 5 MG TABLET PO SCH (08:55)
[2022-12-02 11:00] VITALS: BP 145/99
[2022-12-02] MEDS: CEFTRIAXONE 2GM VIAL IVPB SCH (13:42)
[2022-12-02 16:00] VITALS: BP 149/97
[2022-12-02 21:22] VITALS: BP 141/92
[2022-12-03 00:08] VITALS: BP 136/90
[2022-12-03] MEDS: ACETAMINOPHEN WITH CODEINE 1 TAB TAB PO PRN ×4 (02:23→23:34)
[2022-12-03 04:14] VITALS: BP 126/77
[2022-12-03 05:06] LABS: HEMATOCRIT 30.4 % (42-54); MEAN CORPUSCULAR HEMOGLOBIN 30.5 pg (27.0-33.0); MEAN CORPUSCULAR HGB CONC 32.6 g/dL (32.0-36.0); MEAN CORPUSCULAR VOLUME 93.5 fL (79-99); RED BLOOD CELL COUNT(AUTO) 3.25 MIL/uL (4.50-6.20); RED CELL DISTRIBUTION WIDTH 17.1 % (11.0-15.5); WHITE BLOOD COUNT (AUTO) 7.8 K/uL (4.8-10.8)
[2022-12-03] MEDS: GUAIFENESIN-DM 200/20 MG 10 ML PO PRN ×2 (05:12→20:50)
[2022-12-03 05:30] LABS: ALBUMIN 2.6 g/dL (3.5-5.0); CREATININE 0.9 mg/dL (0.5-1.5); POTASSIUM 4.2 mmol/L (3.5-5.1); TOTAL PROTEIN, SERUM 7.5 g/dL (6.0-8.3)
[2022-12-03 08:00] VITALS: BP 135/79
[2022-12-03] MEDS: CARVEDILOL 3.125 MG TABLET PO SCH ×2 (09:19→20:50)
[2022-12-03] MEDS: AMLODIPINE 5 MG TAB PO SCH ×2 (09:19→20:50)
[2022-12-03] MEDS: LISINOPRIL 5 MG TABLET PO SCH (09:20)
[2022-12-03] MEDS: PANTOPRAZOLE 40 MG/VIAL IVP SCH (09:20)
[2022-12-03 11:00] VITALS: BP 130/91
[2022-12-03] MEDS: CEFTRIAXONE 2GM VIAL IVPB SCH (13:31)
[2022-12-03 16:55] VITALS: BP 120/67
[2022-12-03 20:00] VITALS: BP 137/97
[2022-12-03] MEDS: ACETAMINOPHEN 325 MG TAB PO PRN (20:50)
[2022-12-04] VITALS: BP 120/79
[2022-12-04 04:00] VITALS: BP 118/77
[2022-12-04] MEDS: ACETAMINOPHEN WITH CODEINE 1 TAB TAB PO PRN ×3 (07:12→20:27)
[2022-12-04 08:00] VITALS: BP 148/98
[2022-12-04] MEDS: LISINOPRIL 5 MG TABLET PO SCH (09:47)
[2022-12-04] MEDS: CARVEDILOL 3.125 MG TABLET PO SCH ×2 (09:48→20:28)
[2022-12-04] MEDS: PANTOPRAZOLE 40 MG/VIAL IVP SCH (09:48)
[2022-12-04] MEDS: CEFTRIAXONE 2GM VIAL IVPB SCH (09:48)
[2022-12-04] MEDS: AMLODIPINE 5 MG TAB PO SCH ×2 (09:48→20:34)
[2022-12-04 12:32] VITALS: BP 140/86
[2022-12-04 16:00] VITALS: BP 127/78
[2022-12-04 20:00] VITALS: BP 143/85
[2022-12-05] VITALS: BP 109/65
[2022-12-05 04:00] VITALS: BP 128/85
[2022-12-05 04:38] LABS: HEMATOCRIT 28.9 % (42-54); MEAN CORPUSCULAR HEMOGLOBIN 30.6 pg (27.0-33.0); MEAN CORPUSCULAR HGB CONC 32.2 g/dL (32.0-36.0); MEAN CORPUSCULAR VOLUME 95.1 fL (79-99); RED BLOOD CELL COUNT(AUTO) 3.04 MIL/uL (4.50-6.20); RED CELL DISTRIBUTION WIDTH 16.5 % (11.0-15.5); WHITE BLOOD COUNT (AUTO) 6.3 K/uL (4.8-10.8)
[2022-12-05 04:54] LABS: ALBUMIN 2.5 g/dL (3.5-5.0); CREATININE 0.9 mg/dL (0.5-1.5); POTASSIUM 3.5 mmol/L (3.5-5.1); TOTAL PROTEIN, SERUM 7.1 g/dL (6.0-8.3)
[2022-12-05 07:58] VITALS: BP 135/84
[2022-12-05] MEDS: PANTOPRAZOLE 40 MG/VIAL IVP SCH (08:37)
[2022-12-05] MEDS: LISINOPRIL 5 MG TABLET PO SCH (08:37)
[2022-12-05] MEDS: ACETAMINOPHEN WITH CODEINE 1 TAB TAB PO PRN ×3 (08:38→21:00)
[2022-12-05] MEDS: CARVEDILOL 3.125 MG TABLET PO SCH ×2 (08:38→21:00)
[2022-12-05] MEDS: AMLODIPINE 5 MG TAB PO SCH ×2 (08:38→20:08)
[2022-12-05 11:24] VITALS: BP 135/86
[2022-12-05] MEDS: CEFTRIAXONE 2GM VIAL IVPB SCH (15:15)
[2022-12-05 16:00] VITALS: BP 127/79
[2022-12-05 20:00] VITALS: BP 125/90
[2022-12-06] VITALS (7 sets, daily range): BP systolic 118–156; BP diastolic 67–117
[2022-12-06] MEDS: ACETAMINOPHEN WITH CODEINE 1 TAB TAB PO PRN ×3 (04:07→21:55)
[2022-12-06 04:45] LABS: BASOPHILS % (AUTO) 2.6 % (0.0-5.0); EOSINOPHILS % (AUTO) 3.9 % (0.0-8.0); HEMATOCRIT 28.8 % (42-54); LYMPHOCYTES % (AUTO) 23.4 % (21.0-51.0); MEAN CORPUSCULAR HGB CONC 31.9 g/dL (32.0-36.0); MONOCYTES % (AUTO) 12.7 % (3.0-13.0); PLATELET COUNT (AUTO) 553 K/uL (130-400); RED BLOOD CELL COUNT(AUTO) 2.97 MIL/uL (4.50-6.20); RED CELL DISTRIBUTION WIDTH 16.4 % (11.0-15.5)
[2022-12-06 05:14] LABS: CREATININE 0.9 mg/dL (0.5-1.5); POTASSIUM 3.9 mmol/L (3.5-5.1)
[2022-12-06] MEDS: LISINOPRIL 5 MG TABLET PO SCH (09:14)
[2022-12-06] MEDS: PANTOPRAZOLE 40 MG/VIAL IVP SCH (09:14)
[2022-12-06] MEDS: AMLODIPINE 5 MG TAB PO SCH ×2 (09:14→20:15)
[2022-12-06] MEDS: CARVEDILOL 3.125 MG TABLET PO SCH ×2 (09:14→20:15)
[2022-12-06] MEDS: KETOROLAC 15MG/ML VIAL (15MG/ML) IV PRN ×2 (09:19→16:24)
[2022-12-06] MEDS: CEFTRIAXONE 2GM VIAL IVPB SCH (13:09)
[2022-12-06] MEDS ORDERED: IOHEXOL 350 MG/ML 100ML INFUS..BTL IV ONE (17:10)
[2022-12-07 04:12] VITALS: BP 146/92
[2022-12-07 06:29] LABS: HEMATOCRIT 27.9 % (42-54); MEAN CORPUSCULAR HEMOGLOBIN 30.5 pg (27.0-33.0); MEAN CORPUSCULAR HGB CONC 32.6 g/dL (32.0-36.0); MEAN CORPUSCULAR VOLUME 93.6 fL (79-99); RED BLOOD CELL COUNT(AUTO) 2.98 MIL/uL (4.50-6.20); WHITE BLOOD COUNT (AUTO) 5.6 K/uL (4.8-10.8)
[2022-12-07 06:40] LABS: CREATININE 0.9 mg/dL (0.5-1.5); POTASSIUM 4.1 mmol/L (3.5-5.1)
[2022-12-07 08:00] VITALS: BP 145/77
[2022-12-07] MEDS: PANTOPRAZOLE 40 MG/VIAL IVP SCH (08:10)
[2022-12-07] MEDS: LISINOPRIL 5 MG TABLET PO SCH (08:11)
[2022-12-07] MEDS: AMLODIPINE 5 MG TAB PO SCH ×2 (08:11→20:27)
[2022-12-07] MEDS: CARVEDILOL 3.125 MG TABLET PO SCH ×2 (08:11→20:27)
[2022-12-07] MEDS: KETOROLAC 15MG/ML VIAL (15MG/ML) IV PRN ×2 (08:12→20:27)
[2022-12-07 11:56] VITALS: BP 145/88
[2022-12-07] MEDS: CEFTRIAXONE 2GM VIAL IVPB SCH (13:56)
[2022-12-07 16:00] VITALS: BP 140/97
[2022-12-07 21:12] VITALS: BP 153/100
[2022-12-07] MEDS: GUAIFENESIN-DM 200/20 MG 10 ML PO PRN (23:11)
[2022-12-07 23:56] VITALS: BP 109/59
[2022-12-08 04:25] VITALS: BP 141/90
[2022-12-08] MEDS: ACETAMINOPHEN 325 MG TAB PO PRN (04:34)
[2022-12-08 07:38] LABS: HEMATOCRIT 31.2 % (42-54); MEAN CORPUSCULAR HEMOGLOBIN 30.9 pg (27.0-33.0); MEAN CORPUSCULAR HGB CONC 32.7 g/dL (32.0-36.0); MEAN CORPUSCULAR VOLUME 94.5 fL (79-99); RED BLOOD CELL COUNT(AUTO) 3.3 MIL/uL (4.50-6.20); RED CELL DISTRIBUTION WIDTH 15.8 % (11.0-15.5); WHITE BLOOD COUNT (AUTO) 6.9 K/uL (4.8-10.8)
[2022-12-08 07:41] VITALS: BP 139/58
[2022-12-08 07:53] LABS: POTASSIUM 4.3 mmol/L (3.5-5.1); TOTAL PROTEIN, SERUM 7.8 g/dL (6.0-8.3)
[2022-12-08] MEDS: PANTOPRAZOLE 40 MG/VIAL IVP SCH (08:30)
[2022-12-08] MEDS: CARVEDILOL 3.125 MG TABLET PO SCH (08:31)
[2022-12-08] MEDS: AMLODIPINE 5 MG TAB PO SCH (08:31)
[2022-12-08] MEDS: LISINOPRIL 5 MG TABLET PO SCH (08:31)
[2022-12-08 11:19] VITALS: BP 127/80
[2022-12-08] MEDS: KETOROLAC 15MG/ML VIAL (15MG/ML) IV PRN (12:13)
[2022-12-08] MEDS ORDERED: AMLO-257 PO (14:17)
[2022-12-08] MEDS ORDERED: CARV3.12 PO (14:17)
[2022-12-08] MEDS ORDERED: LISI10TA24 PO (14:17)
[2022-12-08] MEDS: ACETAMINOPHEN WITH CODEINE 1 TAB TAB PO PRN (16:55)
== END 2022-12-08 17:45 | disposition home or self-care (01) | DRG 853 ==
LOC: EDH 19:05 → EDHIP 19:06 → 4DH 11-22 04:39
PROVIDERS: ADMIT Hospitalist; ATTEND Hospitalist
PROC: 0JB50ZZ Excision of Left Neck Subcutaneous Tissue and Fascia, Open Approach (ICD-10-PCS; 2022-11-22)
PROC: 0JB40ZZ Excision of Right Neck Subcutaneous Tissue and Fascia, Open Approach (ICD-10-PCS; 2022-11-22)
PROC: 0JB50ZZ Excision of Left Neck Subcutaneous Tissue and Fascia, Open Approach (ICD-10-PCS; principal; 2022-11-26 08:29)
DX: A41.9 Sepsis, unspecified organism (principal); E43 Unspecified severe protein-calorie malnutrition; J18.9 Pneumonia, unspecified organism; L02.11 Cutaneous abscess of neck; E87.1 Hypo-osmolality and hyponatremia; I96 Gangrene, not elsewhere classified; G93.40 Encephalopathy, unspecified; N39.0 Urinary tract infection, site not specified; L02.416 Cutaneous abscess of left lower limb; I80.8 Phlebitis and thrombophlebitis of other sites; E87.6 Hypokalemia; M60.9 Myositis, unspecified; F10.10 Alcohol abuse, uncomplicated; D75.839 Thrombocytosis, unspecified; D64.9 Anemia, unspecified; F14.90 Cocaine use, unspecified, uncomplicated; I10 Essential (primary) hypertension; Z59.00 Homelessness unspecified; Z79.899 Other long term (current) drug therapy; Z68.24 Body mass index [BMI] 24.0-24.9, adult
CPT/HCPCS: 36415; 70450; 70491; 71045; 80048; 80053; 80074; 80202; 81001; 82550; 83605; 83735; 84484; 85014; 85018; 85025; 85027; 85610; 85651; 85730; 86140; 86701; 86850; 86900; 86901; 86923; 87040; 87070; 87076; 87088; 87101; 87206; 87390; 87635; 93005; 96365; 96368; 96375; 99291; C9113; G0378; J0330; J0360; J0690; J0696; J1100; J1170; J1644; J1885; J2175; J2250; J2270; J2405; J2543; J2704; J2710; J3010; J3370; J3411; J3475; J3490; J7030; J7050; P9016; Q9967

== ENCOUNTER → 2022-12-13 | Outpatient (CLI) | payer OTHER ==
[~2022-12-13] MED LIST changes: -ACET-2247 PO; +AMLO-257 PO; +CARV3.12 PO; +LISI10TA24 PO
== END | disposition home or self-care (01) ==
LOC: WHH 08:44
PROVIDERS: ATTEND Family Medicine
DX: T81.89XA Other complications of procedures, not elsewhere classified, initial encounter (principal); L02.11 Cutaneous abscess of neck; I10 Essential (primary) hypertension; I80.8 Phlebitis and thrombophlebitis of other sites; F17.290 Nicotine dependence, other tobacco product, uncomplicated; Y83.8 Other surgical procedures as the cause of abnormal reaction of the patient, or of later complication, without mention of misadventure at the time of the procedure; Y92.238 Other place in hospital as the place of occurrence of the external cause
CPT/HCPCS: 99214; A4450

== ENCOUNTER → 2022-12-21 | Outpatient (CLI) | payer OTHER | END | disposition home or self-care (01) | LOC: WHH 08:17 | PROVIDERS: ATTEND Family Medicine | DX: T81.89XD Other complications of procedures, not elsewhere classified, subsequent encounter (principal); L02.11 Cutaneous abscess of neck; I10 Essential (primary) hypertension; I80.8 Phlebitis and thrombophlebitis of other sites; F17.290 Nicotine dependence, other tobacco product, uncomplicated; Y83.8 Other surgical procedures as the cause of abnormal reaction of the patient, or of later complication, without mention of misadventure at the time of the procedure | CPT/HCPCS: 99214 ==

== ENCOUNTER → 2022-12-28 | Outpatient (CLI) | payer OTHER | END | disposition home or self-care (01) | LOC: WHH 08:37 | PROVIDERS: ATTEND Family Medicine | DX: T81.89XD Other complications of procedures, not elsewhere classified, subsequent encounter (principal); L02.11 Cutaneous abscess of neck; I10 Essential (primary) hypertension; I80.8 Phlebitis and thrombophlebitis of other sites; F17.290 Nicotine dependence, other tobacco product, uncomplicated; Y83.8 Other surgical procedures as the cause of abnormal reaction of the patient, or of later complication, without mention of misadventure at the time of the procedure | CPT/HCPCS: 99214 ==

== ENCOUNTER → 2023-01-04 | Outpatient (CLI) | payer OTHER | END | disposition home or self-care (01) | LOC: WHH 08:15 | PROVIDERS: ATTEND Family Medicine | DX: T81.89XD Other complications of procedures, not elsewhere classified, subsequent encounter (principal); L02.11 Cutaneous abscess of neck; I10 Essential (primary) hypertension; I80.8 Phlebitis and thrombophlebitis of other sites; F17.290 Nicotine dependence, other tobacco product, uncomplicated; Y83.8 Other surgical procedures as the cause of abnormal reaction of the patient, or of later complication, without mention of misadventure at the time of the procedure | CPT/HCPCS: 99214 ==

== ENCOUNTER 2023-01-28 12:44 | Emergency (ER) | payer OTHER ==
[~2023-01-28] VITALS: Ht 170.2 cm; Wt 79.4 kg
[2023-01-28 13:19] LABS: BASOPHILS % (AUTO) 1.2 % (0.0-5.0); EOSINOPHILS % (AUTO) 0.2 % (0.0-8.0); HEMATOCRIT 37.1 % (42-54); LYMPHOCYTES % (AUTO) 15.3 % (21.0-51.0); MEAN CORPUSCULAR HEMOGLOBIN 29.5 pg (27.0-33.0); MEAN CORPUSCULAR HGB CONC 33.4 g/dL (32.0-36.0); MEAN CORPUSCULAR VOLUME 88.3 fL (79-99); MONOCYTES % (AUTO) 9.7 % (3.0-13.0); NEUTROPHILS % (AUTO) 73.1 % (40.0-77.0); PLATELET COUNT (AUTO) 400 K/uL (130-400); RED CELL DISTRIBUTION WIDTH 12.8 % (11.0-15.5); WHITE BLOOD COUNT (AUTO) 6.6 K/uL (4.8-10.8)
[2023-01-28 13:30] LABS: APPEARANCE,URINE CLOUDY (CLEAR); BILIRUBIN,URINE NEGATIVE (NEGATIVE); COLOR,URINE YELLOW (YELLOW); GLUCOSE, URINE (UA) NEGATIVE (NEGATIVE); KETONES,URINE 40 mg/dL (NEGATIVE); LEUKOCYTE ESTERASE ,URINE 25 Leu/uL (NEGATIVE); NITRATE,URINE NEGATIVE (NEGATIVE); OCCULT BLOOD,URINE LARGE (NEGATIVE); PROTEIN,URINE 300 mg/dL (NEGATIVE); UROBILINOGEN,URINE 0.2 mg/dL (0.2-1.0)
[2023-01-28 13:33] LABS: CARBON DIOXIDE 16 mmol/L (21-32); CHLORIDE 95 mmol/L (101-111); CREATININE 1.8 mg/dL (0.5-1.5); GLOMERULAR FILTR. RATE CALC 48 mL/min (>90); GLUCOSE,RANDOM 104 mg/dL (70-105); POTASSIUM 3.7 mmol/L (3.5-5.1); SODIUM SERUM 132 mmol/L (136-145); UREA NITROGEN, BLOOD 16 mg/dL (7-18)
[2023-01-28 13:37] LABS: ALANINE AMINOTRANSFERASE 52 U/L (12-78); ALBUMIN 4.2 g/dL (3.5-5.0); ASPARTATE AMINOTRANSFERASE 54 U/L (10-37)
[2023-01-28 13:37] LABS: AMPHET/METH SCREEN,URINE NEGATIVE (NEGATIVE); BARBITURATE SCREEN, URINE NEGATIVE (NEGATIVE); BENZODIAZEPINES SCREEN,URINE NEGATIVE (NEGATIVE); CANNABINOID SCREEN,URINE NEGATIVE (NEGATIVE); COCAINE SCREEN,URINE POSITIVE (NEGATIVE); OPIATE SCREEN,URINE NEGATIVE (NEGATIVE); PHENCYCLIDINE SCREEN,URINE NEGATIVE (NEGATIVE)
[2023-01-28 13:40] LABS: ACETAMINOPHEN < 1 mcg/mL (10-29)
[2023-01-28 13:45] LABS: RBC,URINE 0-1 /HPF (0-1)
[2023-01-28] MEDS ORDERED: ZIPRASIDONE MESYLATE 20 MG/VIAL IM STA (13:54)
[2023-01-28 17:46] VITALS: BP 132/82
== END 2023-01-28 17:48 | disposition home or self-care (01) ==
LOC: EDH 12:44
DX: F22 Delusional disorders (principal); F14.10 Cocaine abuse, uncomplicated; F31.9 Bipolar disorder, unspecified; F20.9 Schizophrenia, unspecified; Z20.822 Contact with and (suspected) exposure to COVID-19; Z98.890 Other specified postprocedural states; Z79.899 Other long term (current) drug therapy
CPT/HCPCS: 99283; 87635; 80053; 80305; 85025; 36415; 81001; G0481; C9803